=== PATIENT | female | born 1950 | race Caucasian/White ===

== ENCOUNTER 2020-04-06 12:43 | Emergency (ER) | payer MEDICARE, OTHER, SELFPAY ==
--- NOTE | 2020-04-06 12:48 | ED.EXTPRO ---
HPI - Extremity Problem General Chief complaint: Extremity Injury, Lower Stated complaint: L/toe injury Time Seen by Provider: 04/06/20 13:00 Source: patient and RN notes reviewed Mode of arrival: ambulatory Limitations: no limitations History of Present Illness HPI Narrative: 70-year-old female presents shortly after injuring her left great toenail. Reports she got the toenail caught on the concrete edge of her driveway, ripping the toenail off. Reports she believes the toenail came completely off. She did not bring the toenail with her. She reports pain, bleeding. She denies musculoskeletal pain MD Complaint: other (Toenail injury) Related Data Home Medications Medication Instructions Recorded Confirmed ascorbic acid (vitamin C) [Vitamin 1 g PO DAILY 04/06/20 04/06/20 C] atorvastatin 10 mg PO DAILY 04/06/20 04/06/20 cholecalciferol (vitamin D3) 10 mcg PO DAILY 04/06/20 04/06/20 [Vitamin D3] lisinopril 5 mg PO DAILY 04/06/20 04/06/20 meloxicam 7.5 mg PO DAILY 04/06/20 04/06/20 pantoprazole 20 mg PO QAM 04/06/20 04/06/20 sertraline 25 mg PO DAILY 04/06/20 04/06/20 Allergies Allergy/AdvReac Type Severity Reaction Status Date / Time No Known Allergies Allergy Verified 04/06/20 13:09 Review of Systems Review of Systems: Narrative: CONSTITUTIONAL: Denies malaise, chills, sweats, or fever. SKIN: Reports injury to the left first toenail MUSCULOSKELETAL: Denies musculoskeletal pain NEUROLOGIC: Denies numbness, weakness All systems reviewed & are unremarkable except as noted in HPI and below PMFSH Comments At time of signature, agree with nursing past medical, surgical, social and family history. There is no relevant family history pertinent to the presenting complaint Exam Narrative: Exam Narrative: GENERAL: Well-appearing, well-nourished, and in no acute distress. HEAD: Normocephalic EYES: PERRLA, conjunctivae clear ENT: Mucous membranes moist. NECK: Supple CHEST: No respiratory distress. Speaks in full sentences. HEART: Regular rate and rhythm. EXTREMITIES: First toe of the left foot has no erythema, edema, ecchymosis, tenderness SKIN: Warm, dry, no rash. First left toenail completely avulsed, no visible remnants, small amount of bleeding to the nailbed NEURO: Alert and oriented x3. PSYCH: Normal mood and affect Course Course Emergency Course: Patient is aware of diagnosis, understands and agrees to treatment plan. Anticipatory guidance given. Patient agrees to follow-up as directed and is aware of reasons to seek care at the emergency department. Portions of this record may have been created with voice recognition software Vital Signs Vital signs: Reviewed. Patient has history of hypertension MDM - Extremity (Nontraumatic) MDM Narrative Medical decision making narrative: Exam findings show no acute concerns or changes; patient is non-toxic appearing and is in no distress. Patient is appropriate for outpatient treatment and follow-up. Critical Care Time Critical Care Time Critical Care Time: No Discharge Plan Discharge Clinical Impression: Detachment of nail Patient Disposition: Home, Self-Care Condition: Stable Instructions: Nail Avulsion (ED) Additional Instructions: Toenails grow at a rate of less than 0.1 inches per month. If your nail matrix was not damaged, your toenail should regrow. You should wash the nail bed with soap and water twice daily then cover with antibiotic ointment and a bandage. You should continue this until hard skin has formed. Watch for signs of infection which include redness, tenderness around the nail bed, or toe. If you see signs of infection please follow-up with your primary care doctor. If you have any urgent concerns please go to the emergency room. Prescriptions: No Action atorvastatin 10 mg Tablet 10 mg PO DAILY RF: 0 meloxicam 7.5 mg Tablet 7.5 mg PO DAILY RF: 0 sertraline 25 mg Tablet 25 mg PO DAILY RF: 0 lisinopr
[2020-04-06 13:01] VITALS: BP 146/74; PULSE 87; RESP 20; TEMP 37.2; O2SAT 97
[2020-04-06] MEDS: TETANUS,DIPHTHERIA,AC PERTUSSIS ADULT (0.5 ML) BOOSTRIX IM (13:18)
== END 2020-04-06 13:38 | disposition home or self-care (01) ==
PROVIDERS: Emergency Provider Nurse Practitioner; PCP Family Medicine
DX: S91.202A Unspecified open wound of left great toe with damage to nail, initial encounter (principal); X58.XXXA Exposure to other specified factors, initial encounter; Z23 Encounter for immunization; E78.00 Pure hypercholesterolemia, unspecified; I10 Essential (primary) hypertension; K21.9 Gastro-esophageal reflux disease without esophagitis; M19.90 Unspecified osteoarthritis, unspecified site; Z96.651 Presence of right artificial knee joint; F41.9 Anxiety disorder, unspecified
CPT/HCPCS: 90471; 90715; 99202; G0463